=== PATIENT | male | born 1995 | race Caucasian/White ===

== ENCOUNTER 2023-04-28 17:52 | Inpatient (IN) | payer OTHER ==
[2023-04-28 19:08] VITALS: BMI 23.7
[2023-04-28] MEDS ORDERED: NALOXONE HCL (KLOXXADO) 8 MG SPRAY NS PRN (20:34)
[2023-04-28] MEDS ORDERED: MAGNESIUM HYDROX 2400MG/30ML ORAL SUSPENSION 30 ML CUP PO PRN (20:34)
[2023-04-28] MEDS ORDERED: DICYCLOMINE HCL 10 MG CAPSULE PO PRN (20:34)
[2023-04-28] MEDS ORDERED: NALOXONE HCL 0.4 MG/ML VIAL IM PRN (20:34)
[2023-04-28] MEDS ORDERED: BENZONATATE 200 MG CAPSULE PO PRN (20:34)
[2023-04-28] MEDS ORDERED: BISMUTH SUBSALICYLATE 524 MG/30 ML PO PRN (20:34)
[2023-04-28] MEDS ORDERED: BENZOCAINE/MENTHOL (CHLORASEPTIC ) LOZENGE MM PRN (20:34)
[2023-04-28] MEDS ORDERED: MAG HYDROX/AL HYDROX/SIMETH 30 ML UNIT-DOSE CUP PO PRN (20:34)
[2023-04-28] MEDS ORDERED: NICOTINE 10 MG CARTRIDGE (INHALER) IH PRN (20:34)
[2023-04-28] MEDS ORDERED: IBUPROFEN 400 MG TABLET (FP) PO PRN (20:34)
[2023-04-28] MEDS ORDERED: ONDANSETRON *ODT* 4 MG TABLET SL PRN (20:34)
[2023-04-28] MEDS ORDERED: guaiFENesin 600 MG TABLET.ER (FP) PO PRN (20:34)
[2023-04-28] MEDS ORDERED: LOPERAMIDE HCL 2 MG CAPSULE PO PRN (20:34)
[2023-04-28] MEDS ORDERED: ACETAMINOPHEN 325 MG TABLET (FP) PO PRN (20:34)
[2023-04-28] MEDS ORDERED: POLYETHYLENE GLYCOL (HEALTHYLAX) 3350 17 GM PACKET PO PRN (20:34)
[2023-04-29] MEDS: MELATONIN 5 MG TABLETS PO SCH ×2 (00:43→22:41)
[2023-04-29] MEDS: THIAMINE HCL 100 MG TABLET (FP) PO SCH ×2 (00:43→22:41)
[2023-04-29] MEDS ORDERED: methaDONE HCL 10 MG TABLET (FOR DETOX USE ONLY) PO ONE (00:55)
[2023-04-29] MEDS: IBUPROFEN 600 MG TABLET (FP) PO PRN (01:07)
[2023-04-29] MEDS: METHOCARBAMOL 500 MG TABLET PO PRN ×2 (01:07→22:42)
[2023-04-29] MEDS: PRENATAL VITAMINS W/ FOLIC ACID TABLET (FP) PO SCH (10:37)
[2023-04-29] MEDS: cloNIDine HCL 0.1 MG TABLET PO PRN (10:37)
[2023-04-29] MEDS: NICOTINE 21 MG/24 HOURS TOPICAL PATCH TD SCH (10:37)
[2023-04-29 12:42] LABS: HEMATOCRIT 36.3 % (35.4-49); HEMOGLOBIN 12.6 GM/dL (11.7-16.9); MCH 30.7 pg (25.7-33.7); MCHC 34.6 g/dl (32.0-35.9); MEAN CELL VOLUME 88.9 fl (80-96); PLATELET COUNT 266 10^3/uL (134-434); RBC 4.09 M/mm3 (4.00-5.60); RDW 14.6 % (11.9-15.9); WHITE BLOOD COUNT 3.1 K/mm3 (4.0-10.0)
[2023-04-29 12:44] LABS: POTASSIUM 3.8 mmol/L (3.5-5.1)
[2023-04-29 12:51] LABS: CALCIUM 9.3 mg/dL (8.5-10.1)
[2023-04-29 12:53] LABS: ALBUMIN 3.8 g/dl (3.4-5.0); BLOOD UREA NITROGEN 7.2 mg/dL (7-18)
[2023-04-29 12:55] LABS: CREATININE 0.6 mg/dL (0.55-1.3)
[2023-04-29 12:56] LABS: BILIRUBIN,TOTAL 0.7 mg/dL (0.2-1)
[2023-04-29 12:57] LABS: TOT PROT 6.6 g/dl (6.4-8.2)
[2023-04-30] MEDS: PRENATAL VITAMINS W/ FOLIC ACID TABLET (FP) PO SCH (10:21)
[2023-04-30] MEDS: METHOCARBAMOL 500 MG TABLET PO PRN ×2 (10:21→17:32)
[2023-04-30] MEDS: cloNIDine HCL 0.1 MG TABLET PO PRN (10:21)
[2023-04-30] MEDS: NICOTINE 21 MG/24 HOURS TOPICAL PATCH TD SCH (10:23)
[2023-04-30] MEDS: IBUPROFEN 600 MG TABLET (FP) PO PRN (17:32)
[2023-04-30 21:21] VITALS: RESP 18
[2023-04-30] MEDS: MELATONIN 5 MG TABLETS PO SCH (22:35)
[2023-04-30] MEDS: THIAMINE HCL 100 MG TABLET (FP) PO SCH (22:35)
[2023-05-01 09:04] VITALS: BP 120/84; PULSE 64; TEMP 97.1
[2023-05-01] MEDS ORDERED: methaDONE HCL 10 MG TABLET (FOR DETOX USE ONLY) PO ONE (10:00)
[2023-05-01] MEDS: PRENATAL VITAMINS W/ FOLIC ACID TABLET (FP) PO SCH (10:06)
[2023-05-01] MEDS: NICOTINE 21 MG/24 HOURS TOPICAL PATCH TD SCH (10:06)
[2023-05-03] MEDS ORDERED: methaDONE HCL 10 MG TABLET (FOR DETOX USE ONLY) PO ONE (10:00)
== END 2023-05-01 11:23 | disposition left against medical advice (07) | DRG 770 ==
LOC: YASAS 17:52 → Y6N 23:14
PROVIDERS: ADMIT Allergy & Immunology; ATTEND Surgery
PROC: HZ2ZZZZ Detoxification Services for Substance Abuse Treatment (ICD-10-PCS; principal; 2023-04-28)
DX: F11.23 Opioid dependence with withdrawal (principal); F17.213 Nicotine dependence, cigarettes, with withdrawal; J45.909 Unspecified asthma, uncomplicated; Z28.310 Unvaccinated for COVID-19; Z28.9 Immunization not carried out for unspecified reason
CPT/HCPCS: 36415; 80053; 83036; 85027; 86780; 87635; 87811